=== PATIENT | female | born 1975 | race Caucasian/White ===

== ENCOUNTER 2017-02-15 10:39 | Emergency (ER) | payer OTHER ==
[2017-02-15 11:30] LABS: HEMOGLOBIN 12.6 gm/dl (12.3-15.3); RED BLOOD COUNT 4.23 M/UL (4.00-5.10); WHITE BLOOD COUNT 6.1 K/UL (4.5-11.0)
[2017-02-15 11:49] LABS: BUN/CREATININE RATIO 18 (0-10)
== END 2017-02-15 18:20 | disposition home or self-care (01) ==
LOC: ER1 10:39
PROVIDERS: Physician Assistant
DX: R10.31 Right lower quadrant pain (principal); R11.0 Nausea; Z90.49 Acquired absence of other specified parts of digestive tract
CPT/HCPCS: 36415; 80053; 81001; 83690; 84703; 85025; 87086; 87210; 96361; 96374; 96375; 96376; 99284; J1885; J2270; J2405; J7050; Q9962

== ENCOUNTER 2022-05-06 23:51 | Emergency (ER) | payer OTHER ==
[~2022-05-06 23:51] MED LIST: KEFLEX CAP 500500 MG PO; LODINE CAP 300300 MG PO
[2022-05-07 00:32] LABS: HEMOGLOBIN 11.5 gm/dl (12.3-15.3); RED BLOOD COUNT 3.84 M/UL (4.00-5.10); WHITE BLOOD COUNT 14.3 K/UL (4.5-11.0)
[2022-05-07 00:54] LABS: BUN/CREATININE RATIO 18 (0-10)
== END 2022-05-07 04:50 | disposition home or self-care (01) ==
LOC: ER1 23:51
PROVIDERS: Student in an Organized Health Care Education/Training Program
DX: R07.89 Other chest pain (principal); E87.6 Hypokalemia
CPT/HCPCS: 71045; 80053; 82550; 82553; 84484; 85025; 93005; 99285